=== PATIENT | male | born 1955 | race Hispanic/Latino ===

== ENCOUNTER 2017-06-12 10:30 | Observation (INO) | payer BC ==
[2017-06-12] MEDS ORDERED: CEFTRIAXONE/SWI 1gm 1 GM/10 ML SYR ONE (12:49)
[2017-06-12] MEDS ORDERED: VANCOMYCIN/NS 1 gm 1 GM/250 ML BAG ONE (12:49)
[2017-06-12] MEDS ORDERED: MORPHINE 10 MG/ML VIAL ONE ×2 (12:49→17:35)
[2017-06-12] MEDS ORDERED: ONDANSETRON 4 MG/2 ML VIAL ONE (12:49)
[2017-06-12] MEDS ORDERED: NA CHLORIDE 0.9% 2,000 ML ONE (12:49)
--- NOTE | 2017-06-12 13:27 | RAD REPORT ---
EXAM DESCRIPTION: CT - Head Brain Wo Cont - 06/12/2017 1:19 pm CLINICAL HISTORY: Transient alteration of awareness COMPARISON: None. TECHNIQUE: Axial 5 mm thick images of the head were obtained without IV contrast. All CT scans are performed using dose optimization technique as appropriate and may include automated exposure control or mA/KV adjustment according to patient size. FINDINGS: No intracranial hemorrhage, mass, edema or shift of mid-line structures. No acute infarcti on changes seen. No abnormal extra-axial fluid collections. Ventricles are normal. Mastoid air cells and visualized portions of the paranasal sinuses are clear. No acute bony findings. IMPRESSION: Negative non-contrast CT head examination.
[2017-06-12 13:33] LABS: Absolute Lymphocytes (CBC) 1.5 K/uL (0.7-4.9); Absolute Monocytes 1.5 K/uL (0.1-1.3); Basophils % 0.5 % (0-1.3); Eosinophils % 5.4 % (0-4.4); Hematocrit 46.6 % (39.6-49.0); MCH 31.2 pg (27.0-35.0); MCV 94.2 fL (80-100); MPV 10.1 fL (7.6-11.3); Monocytes % 20.6 % (3.3-12.3); RBC Red Blood Cell Count 4.94 M/uL (4.33-5.43)
[2017-06-12 13:35] LABS: Urine Blood NEGATIVE (NEG); Urine Glucose NEGATIVE (NEG); Urine Protein NEGATIVE (NEG)
[2017-06-12 13:41] LABS: Protime INR 1.07
[2017-06-12 13:44] LABS: Bicarbonate 29 mEq/L (21-31); Glucose Level 105 mg/dL (65-120); Lipase 21 U/L (22-51); Sodium Level 136 mEq/L (135-145)
--- NOTE | 2017-06-12 13:45 | RAD REPORT ---
EXAM DESCRIPTION: RAD - Chest Single View - 06/12/2017 1:37 pm CLINICAL HISTORY: Chills, fever COMPARISON: None. TECHNIQUE: AP portable chest image was obtained 1333 hours . FINDINGS: Right lung field is clear. There is elevation of the left hemidiaphragm limiting left lung base assessment. Atelectasis changes are present. No failure or volume overload. Trachea is midline. Heart and vasculature are normal. No measurable pleural effusion and no pneumothorax. No gross bony abnormality seen. No acute aortic findings suspected. IMPRESSION: No acute cardiopulmonary process identifiable. The left base atelectasis and elevated left hemidiaphragm limit posterior left base assessment.
[2017-06-12 13:52] LABS: ALT/SGPT 42 IU/L (10-60); AST/SGOT 25 IU/L (10-42); Albumin 4.2 g/dL (3.2-5.5); Alkaline Phosphatase 54 IU/L (42-121); BUN Blood Urea Nitrogen 14 mg/dL (6-20); Bilirubin Direct 0.1 mg/dL (0-0.2); Bilirubin Total 0.7 mg/dL (0.3-1.2); C-Reactive Protein 9.7 mg/L (<10.0); Creatine Phosphokinase 96 IU/L (22-269); Protein, Total 7.9 g/dL (6.0-8.3)
[2017-06-12 13:53] LABS: CKMB Creatine Kinase MB 2.1 ng/ml (0.3-4.0)
[2017-06-12 15:13] LABS: CSF Glucose 55 mg/dl (40-70)
[2017-06-12 16:42] LABS: Appearance SLT. TURBID (CLEAR); Body Fluid Source CSF; Color of fluid Colorless (COLORLESS); Fluid Total Volume 4 ml
[2017-06-12 16:43] LABS: Body Fluid Source CSF; Body Fluid WBC 80 /mm^3; Color of fluid Colorless (COLORLESS)
[2017-06-12 16:44] LABS: Appearance CLEAR (CLEAR); Body Fluid WBC 104 /mm^3
--- NOTE | 2017-06-12 17:01 | EDPHYS ---
Physician Documentation [facility] Name: Cedrick Espinosa Age: 62 yrs Sex: Male : 1955 Arrival Date: 06/12/2017 Time: 10:35 Bed 20 Private MD: ED Physician Antonio Nichols HPI: 06/12 18:57 This 62 yrs old Male presents to ER via Ambulatory with complaints of Headache.kdr 18:57 The patient complains of pain to the left side of the back of head, left occipital kdr area, left base of the skull, right side of the back of head, right occipital area and right base of the skull. The patient describes the headache as aching, constant, unrelenting. Onset: The symptoms/episode began/occurred gradually, 1 week(s) ago, and became worse 3 day(s) ago. Associated signs and symptoms: Pertinent positives: fever, malaise, neck stiffness, weakness, Pertinent negatives: altered mental status, dizziness, paresthesias, Photophobia rash, sinus congestion, sinus tenderness, vision changes, vision loss, vomiting, vertigo. Severity of symptoms: At its worst the pain was moderate, severe, just prior to arrival, in the emergency department the pain is unchanged. Headache History: Denies prior headaches. The symptoms are alleviated by nothing. the symptoms are aggravated by movement. The patient has not experienced similar symptoms in the past. The patient has been recently seen by a physician: Was seen on Tuesday for the same problem and given pain medication but he had only taken one pill without relief. Historical: - Allergies: 10:55 No Known Allergies; hj - Home Meds: 10:55 None [Active]; hj - PMHx: 10:55 None; - PSHx: 10:55 R femur; puncture lung; splenectomy; abdominal surgeery; hj - Immunization history:: Adult Immunizations up to date. - Social history:: Smoking status: Patient/guardian denies using tobacco. ROS: 18:57 Constitutional: Negative for objective fever and weight loss - he has had subjective kdr fever and chills Eyes: Negative for injury, pain, redness, and discharge, ENT: Negative for injury, pain, and discharge, Cardiovascular: Negative for chest pain, palpitations, and edema, Respiratory: Negative for shortness of breath, cough, wheezing, and pleuritic chest pain, Abdomen/GI: Negative for abdominal pain, nausea, vomiting, diarrhea, and constipation, Back: Negative for injury and pain, : Negative for injury, bleeding, discharge, and swelling, MS/Extremity: Negative for injury and deformity - he does have pain in his joints and espicially the knees Skin: Negative for injury, rash, and discoloration, Neuro: Negative for headache, weakness, numbness, tingling, and seizure activity. Psych: Negative for depression, anxiety, suicide ideation, homicidal ideation, and hallucinations, Allergy/Immunology: Negative for hives, rash, and allergies, Endocrine: Negative for neck swelling, polydipsia, polyuria, polyphagia, and marked weight changes, Hematologic/Lymphatic: Negative for swollen nodes, abnormal bleeding, and unusual bruising. Exam: 18:57 Constitutional: This is a well developed, well nourished patient who is awake, alert, kdr and in no acute distress. Head/Face: Normocephalic, atraumatic. Eyes: Pupils equal round and reactive to light, extra-ocular motions intact. Lids and lashes normal. Conjunctiva and sclera are non-icteric and not injected. Cornea within normal limits. Periorbital areas with no swelling, redness, or edema. ENT: Nares patent. No nasal discharge, no septal abnormalities noted. Tympanic membranes are normal and external auditory canals are clear. Oropharynx with no redness, swelling, or masses, exudates, or evidence of obstruction, uvula midline. Mucous membranes moist. Chest/axilla: Normal chest wall appearance and motion. Nontender with no deformity. No lesions are appreciated. Cardiovascular: Regular rate and rhythm with a normal S1 and S2. No gallops, murmurs, or rubs. Normal PMI, no JVD. No pulse deficits. Respiratory: Lungs have equal breath sounds bilaterally, clear to auscultation and percussion. No rales, rhonchi or wheezes noted. No increased work of breathing, no retractions or nasal flaring. Abdomen/GI: Soft, non-tender, with normal bowel sounds. No distension or tympany. No guarding or rebound. No evidence of tenderness throughout. Back: No spinal tenderness. No costovertebral tenderness. Full range of motion. Skin: Warm, dry with normal turgor. Normal color with no rashes, no lesions, and no evidence of cellulitis. MS/ Extremity: Pulses equal, no cyanosis. Neurovascular intact. Full, normal range of motion. Neuro: Awake and alert, GCS 15, oriented to person, place, time, and situation. Cranial nerves II-XII grossly intact. Motor strength 5/5 in all extremities. Sensory grossly intact. Cerebellar exam normal. Normal gait. Psych: Awake, alert, with orientation to person, place and time. Behavior, mood, and affect are within normal limits. 18:57 Neck: External neck: is normal, C-spine: Thyroid: ROM/movement: pain, that is mild, limited range of motion, that is mild, in any direction, Meningeal signs: Kernig's sign is negative, Brudzinski's sign is negative, nuchal rigidity, is present, that is mild. Vital Signs: 10:56 BP 123 / 84; Pulse 56; Resp 18; Temp 98.0(O); Pulse Ox 98% on R/A; Weight 80.29 kg; Height 5 ft. 10 in. (177.80 cm); Pain 8/10; 12:40 BP 122 / 70; Pulse 53; Resp 18; Pulse Ox 96% on R/A; em 13:30 BP 121 / 82; Pulse 52; Resp 18; Pulse Ox 97% on R/A; em 15:00 Temp 98.9; em 15:25 BP 119 / 74; Pulse 56; Resp 19; Pulse Ox 95% on R/A; Pain 3/10; em 16:16 BP 126 / 81; Pulse 66; Pulse Ox 96% on R/A; Pain 3/10; em 17:00 BP 127 / 81; Pulse 57; Resp 18; Pulse Ox 96% on R/A; Pain 6/10; em 18:07 BP 133 / 79; Pulse 71; Resp 16; Temp 99.6; Pulse Ox 99% on R/A; Pain 3/10; em 10:56 Body Mass Index 25.40 (80.29 kg, 177.80 cm) Procedures: 14:43 Lumbar Puncture: Patient placed in left lateral decubitus position. Prepped with cp Betadine. Draped using sterile technique. clear fluid. Puncture site dressed with band aid, Patient tolerated well. MDM: 17:00 Patient medically screened. kdr 18:57 Data reviewed: vital signs, nurses notes, lab test result(s), radiologic studies. kdr Counseling: I had a detailed discussion with the patient and/or guardian regarding: the historical points, exam findings, and any diagnostic results supporting the discharge/admit diagnosis, lab results, radiology results, the need for further work-up and treatment in the hospital. Physician consultation: Miguel A Carver MD was called at 15:00, was contacted at 15:00, regarding consult, patient's condition, and will see patient in inpatient room, tomorrow. 06/12 12:45 Order name: Basic Metabolic Panel; Complete Time: 15: kdr 06/12 12:45 Order name: Blood Culture Adult (2) kdr 06/12 12:45 Order name: C-Reactive Protein; Complete Time: : kdr 06/12 12:45 Order name: CBC with Diff; Complete Time: 15: kdr 06/12 12:45 Order name: Ckmb; Complete Time: : kdr 06/12 12:45 Order name: CPK; Complete Time: : kdr 06/12 12:45 Order name: Lactate; Complete Time: : kdr 06/12 12:45 Order name: LFT's; Complete Time: : kdr 06/12 12:45 Order name: Lipase; Complete Time: : kdr 06/12 12:45 Order name: Protime (+inr); Complete Time: 15: kdr 06/12 12:45 Order name: Ptt, Activated; Complete Time: 15: kdr 06/12 12:45 Order name: Sed Rate; Complete Time: : kdr 06/12 12:45 Order name: Troponin (emerg Dept Use Only); Complete Time: 15: kdr 06/12 13:06 Order name: Urine Dipstick--Ancillary (enter results); Complete Time: 15:22 ag 06/12 14:56 Order name: CSF Glucose; Complete Time: 15: EDMS 06/12 14:56 Order name: CSF Total Protein; Complete Time: 15: EDMS 06/12 14:56 Order name: CSF SPECIMEN; Complete Time: 16:48 EDMS 06/12 14:56 Order name: Cell Count Profile; Complete Time: 16:48 EDMS 06/12 14:56 Order name: CSF Culture EDMS 06/12 14:56 Order name: CSF Bacterial Antigens (Tube 1 EDMS 06/12 14:58 Order name: Body Fluid Cell Count; Complete Time: 16:48 EDMS 06/12 17:12 Order name: CSF VDRL EDMS 06/12 17:33 Order name: Comprehensive Metabolic Panel EDMS 06/12 17:33 Order name: Comprehensive Metabolic Panel EDMS 06/12 17:33 Order name: Comprehensive Metabolic Panel EDMS 06/12 17:33 Order name: Comprehensive Metabolic Panel EDMS 06/12 17:33 Order name: Magnesium EDMS 06/12 17:33 Order name: Magnesium EDMS 06/12 12:45 Order name: Chest Single View XRAY; Complete Time: 15:22 kdr 06/12 12:45 Order name: Accucheck; Complete Time: 14:47 kdr 06/12 12:45 Order name: Cardiac monitoring; Complete Time: 14:47 kdr 06/12 12:45 Order name: EKG - Nurse/Tech; Complete Time: 14:47 kdr 06/12 12:45 Order name: IV Saline Lock - Large Bore; Complete Time: 14:48 kdr 06/12 12:45 Order name: Labs collected and sent; Complete Time: 14:48 kdr 06/12 12:45 Order name: O2 Per Protocol; Complete Time: 14:48 kdr 06/12 12:45 Order name: O2 Sat Monitoring; Complete Time: 14:48 kdr 06/12 12:45 Order name: Urine Dipstick-Ancillary (obtain specimen); Complete Time: 12:46 kdr 06/12 12:59 Order name: CT Head Brain wo Cont; Complete Time: 15:22 kdr 06/12 13:04 Order name: Lumbar Puncture Consent; Complete Time: 14:47 cp 06/12 17:34 Order name: CONS Physician Consult OR 06/12 17:34 Order name: Heart Healthy EDMS 06/12 17:34 Order name: Urinalysis EDMS 06/12 17:34 Order name: CBC with Automated Diff EDMS 06/12 17:34 Order name: CBC with Automated Diff EDMS 06/12 17:34 Order name: CBC with Automated Diff EDMS 06/12 17:34 Order name: CBC with Automated Diff EDMS 06/12 17:34 Order name: Magnesium EDMS 06/12 17:34 Order name: Magnesium EDMS 06/12 17:34 Order name: Phosphorus EDMS 06/12 17:34 Order name: Phosphorus EDMS 06/12 17:34 Order name: Phosphorus EDMS 06/12 17:34 Order name: Phosphorus EDMS 06/12 13:04 Order name: Lumbar Puncture Setup; Complete Time: 14:47 cp Administered Medications: 13:12 Drug: Zofran 4 mg Route: IVP; Site: right antecubital; ss 13:54 Follow up: Response: No adverse reaction em 13:15 Drug: morphine 4 mg Route: IVP; Site: right antecubital; ss 13:54 Follow up: Response: No adverse reaction em 13:50 Drug: Rocephin - (cefTRIAXone) 1 grams Route: IVPB; Infused Over: 30 mins; Site: right ss antecubital; 17:47 Follow up: Response: No adverse reaction; IV Status: Completed infusion em 13:54 Drug: vancoMYCIN 1 grams Route: IVPB; Infused Over: 2 hrs; Site: right antecubital; em 17:46 Follow up: IV Status: Completed infusion; IV Intake: 250ml em 13:55 Drug: NS 0.9% (30 ml/kg) 30 ml/kg Route: IV; Rate: bolus; Site: right antecubital; em 18:11 Follow up: IV Status: Completed infusion; IV Intake: 2400ml em 17:43 Drug: morphine 4 mg Route: IVP; Site: right antecubital; em 18:01 Follow up: Response: No adverse reaction em 17:43 Drug: Zofran 4 mg Route: IVP; Site: right antecubital; em 18:11 Follow up: Response: No adverse reaction em 17:52 Drug: Acyclovir (20mg/kg) 20 mg/kg Route: IVPB; Site: right antecubital; em 18:15 Follow up: IV Status: Infusion continued upon admission; IV Intake: 20ml em Point of Care Testing: Blood Glucose: 13:10 Blood Glucose: 99 mg/dL; em Ranges: Critical Glucose Levels:Adult <50 mg/dl or >400 mg/dl <40 mg/dl or >180 mg/dl Disposition: 16:58 I agree with the assessment and plan of care. kdr Disposition: 06/12/17 17:32 Hospitalization ordered by Lilliana He for Inpatient Admission. 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 - Bed requested for Telemetry/MedSurg (Inpatient). - Status is Inpatient Admission. em - Condition is Fair. - Problem is new. - Symptoms have improved. UTI on Admission? No Signatures: Dispatcher [employer] EDMS Shakira Yi, RN RN Antonio Contreras MD MD kdr Narciso, Jeff, FOUNDRY HAND FOUNDRY HAND em Xochilt Sibley RN RN ss Garry Onofre RN RN hj Page, Corey, PA PA cp Corrections: (The following items were deleted from the chart) 14:03 12:46 BNP+C.LAB.BRZ ordered. EDMS EDMS 14:04 12:46 Procalcitonin+C.LAB.BRZ ordered. EDMS EDMS
--- NOTE | 2017-06-12 17:01 | ER ---
Nurse's Notes [facility] Name: Cedrick Espinosa Age: 62 yrs Sex: Male : 1955 Arrival Date: 06/12/2017 Time: 10:35 Bed 20 Private MD: Diagnosis: Other specified viral encephalitis;arthralgia, myalgia Presentation: 06/12 10:52 Presenting complaint: Patient states: a week ago, i started having headache, went to [facility] in [place] and i started getting worse; i was told i have a virus; now i can barely walk and i hurt all over; denies fever, reports chills and night sweats;. Transition of care: patient was not received from another setting of care. Onset of symptoms was June 12, 2017. Care prior to arrival: None. 10:52 Method Of Arrival: Ambulatory 10:52 Acuity: NEETU 3 hj Triage Assessment: 10:55 Headache History: Denies prior headaches. General: Appears in no apparent distress. hj uncomfortable, Behavior is calm, cooperative, appropriate for age. Pain: Pain currently is 8 out of 10 on a pain scale. Pain began a week ago Also complains of. Historical: - Allergies: 10:55 No Known Allergies; hj - Home Meds: 10:55 None [Active]; hj - PMHx: 10:55 None; hj - PSHx: 10:55 R femur; puncture lung; splenectomy; abdominal surgeery; hj - Immunization history:: Adult Immunizations up to date. - Social history:: Smoking status: Patient/guardian denies using tobacco. Screenin:30 Abuse screen: Denies threats or abuse. Nutritional screening: No deficits noted. em Tuberculosis screening: No symptoms or risk factors identified. Fall Risk None identified. Assessment: 12:37 General: Appears in no apparent distress. uncomfortable, Behavior is calm, cooperative. em General: Reports was at [place] [facility] on Tuesday for neck pain, has got worse with weakness, denies numbness and tingling. Pain: Complains of pain in neck Pain radiates to back Pain currently is 10 out of 10 on a pain scale. Pain began 1 week ago. Neuro: Level of Consciousness is awake, alert, obeys commands, Oriented to person, place, time, situation, Caustic Room Operator are equal bilaterally Weakness in neck. Speech is normal, Facial symmetry appears normal, Intact. Cardiovascular: Capillary refill < 3 seconds Patient's skin is warm and dry. Respiratory: Airway is patent Respiratory effort is even, unlabored, Respiratory pattern is regular, symmetrical. GI: Abdomen is flat, Reports nausea, Patient currently denies vomiting. : Urine is clear. EENT: No signs and/or symptoms were reported regarding the EENT system. Derm: Skin is intact, Skin is pink, warm \T\ dry. Musculoskeletal: Range of motion: intact in all extremities. 12:50 General: The previous assessment is accurate, call light remains within reach. . ss 14:15 Reassessment: Patient and/or family updated on plan of care and expected duration. Pain em level reassessed. Patient is alert, oriented x 3, equal unlabored respirations, skin warm/dry/pink. pt consented for LP. 15:22 Reassessment: Patient appears in no apparent distress at this time. Patient and/or em family updated on plan of care and expected duration. Pain level reassessed. Patient is alert, oriented x 3, equal unlabored respirations, skin warm/dry/pink. Patient states feeling better. 16:16 Reassessment: Patient appears in no apparent distress at this time. Patient and/or em family updated on plan of care and expected duration. Pain level reassessed. Patient is alert, oriented x 3, equal unlabored respirations, skin warm/dry/pink. Patient states feeling better. 17:05 Reassessment: Patient appears in no apparent distress at this time. Patient and/or em family updated on plan of care and expected duration. Pain level reassessed. Patient is alert, oriented x 3, equal unlabored respirations, skin warm/dry/pink. 17:44 Reassessment: Patient appears in no apparent distress at this time. Patient and/or em family updated on plan of care and expected duration. Pain level reassessed. Patient is alert, oriented x 3, equal unlabored respirations, skin warm/dry/pink. c/o of pain 08/07, Dr. Nichols notified, new orders received. Vital Signs: 10:56 BP 123 / 84; Pulse 56; Resp 18; Temp 98.0(O); Pulse Ox 98% on R/A; Weight 80.29 kg; hj Height 5 ft. 10 in. (177.80 cm); Pain 8/10; 12:40 BP 122 / 70; Pulse 53; Resp 18; Pulse Ox 96% on R/A; em 13:30 BP 121 / 82; Pulse 52; Resp 18; Pulse Ox 97% on R/A; em 15:00 Temp 98.9; em 15:25 BP 119 / 74; Pulse 56; Resp 19; Pulse Ox 95% on R/A; Pain 3/10; em 16:16 BP 126 / 81; Pulse 66; Pulse Ox 96% on R/A; Pain 3/10; em 17:00 BP 127 / 81; Pulse 57; Resp 18; Pulse Ox 96% on R/A; Pain 6/10; em 18:07 BP 133 / 79; Pulse 71; Resp 16; Temp 99.6; Pulse Ox 99% on R/A; Pain 3/10; em 10:56 Body Mass Index 25.40 (80.29 kg, 177.80 cm) hj ED Course: 10:35 Patient arrived in ED. tw3 10:54 Triage completed. hj 10:55 Arm band placed on right wrist. hj 12:22 Antonio Nichols MD is Attending Physician. kdr 12:22 Jeff Stuart LVN is Primary Nurse. em 13:10 Inserted saline lock: 20 gauge in right antecubital area, using aseptic technique. em Blood collected. 13:10 Initial lab(s) drawn, by me, sent to lab. First set of blood cultures drawn by me, em Urine collected: clean catch specimen, clear. 13:15 CT completed. Patient moved to CT via stretcher. Patient moved back from CT. sw 13:19 CT Head Brain wo Cont In Process Unspecified. EDMS 13:30 Patient has correct armband on for positive identification. Placed in gown. Bed in low em position. Call light in reach. Side rails up X 1. Adult w/ patient. 13:36 X-ray completed. Portable x-ray completed in exam room. jr1 13:37 Chest Single View XRAY In Process Unspecified. EDMS 14:48 Assist provider with lumbar puncture: Set up LP tray. Performed by Wilfred ISAAC CSF is em clear. Puncture site dressed with band aid, Procedure was successful. Patient tolerated well. 17:31 Lilliana He MD is Hospitalizing Provider. kdr 18:14 Patient admitted, IV remains in place. em Administered Medications: 13:12 Drug: Zofran 4 mg Route: IVP; Site: right antecubital; ss 13:54 Follow up: Response: No adverse reaction em 13:15 Drug: morphine 4 mg Route: IVP; Site: right antecubital; ss 13:54 Follow up: Response: No adverse reaction em 13:50 Drug: Rocephin - (cefTRIAXone) 1 grams Route: IVPB; Infused Over: 30 mins; Site: right ss antecubital; 17:47 Follow up: Response: No adverse reaction; IV Status: Completed infusion em 13:54 Drug: vancoMYCIN 1 grams Route: IVPB; Infused Over: 2 hrs; Site: right antecubital; em 17:46 Follow up: IV Status: Completed infusion; IV Intake: 250ml em 13:55 Drug: NS 0.9% (30 ml/kg) 30 ml/kg Route: IV; Rate: bolus; Site: right antecubital; em 18:11 Follow up: IV Status: Completed infusion; IV Intake: 2400ml em 17:43 Drug: morphine 4 mg Route: IVP; Site: right antecubital; em 18:01 Follow up: Response: No adverse reaction em 17:43 Drug: Zofran 4 mg Route: IVP; Site: right antecubital; em 18:11 Follow up: Response: No adverse reaction em 17:52 Drug: Acyclovir (20mg/kg) 20 mg/kg Route: IVPB; Site: right antecubital; em 18:15 Follow up: IV Status: Infusion continued upon admission; IV Intake: 20ml em Point of Care Testing: Blood Glucose: 13:10 Blood Glucose: 99 mg/dL; em Ranges: Intake: 17:46 IV: 250ml; Total: 250ml. em 18:11 IV: 2400ml; Total: 2650ml. em 18:15 IV: 20ml; Total: 2670ml. em Outcome: 17:00 Discharge ordered by . kdr 17:32 Decision to Hospitalize by Provider. kdr 18:14 Admitted to Med/surg accompanied by nissa, via wheelchair, room 222, with chart, Report em called to HAN Nelson 18:14 Condition: good 18:14 Instructed on the need for admit, Demonstrated understanding of instructions. 18:16 Patient left the ED. em Signatures: Dispatcher [employer] Antonio Maria MD MD kdr Ringgold, Jennifer jr1 Jeff Stuart, FOOD VENDOR FOOD VENDOR em Xochilt Sibley RN RN ss Warren, Shannon sw Joaquin, Henry, RN RN hj Wade, Kinana tw3 Corrections: (The following items were deleted from the chart) 10:58 10:56 Pulse 56bpm; Resp 18bpm; Pulse Ox 98% RA; Temp 98.0F Oral; 80.29 kg; Height 5 ft. hj 10 in.; BMI: 25.4; Pain 8/10; hj
[2017-06-12] MEDS ORDERED: ONDANSETRON 4 MG/2 ML VIAL IV PRN (17:30)
[2017-06-12] MEDS ORDERED: ACYCLOVIR INJ 800 MG in NA CHLORIDE 0.9% 100 ML IVPB SCH (18:00)
[2017-06-12] MEDS ORDERED: VANCOMYCIN 1.25 GM in NA CHLORIDE 0.9% 250 ML IVPB SCH (18:00)
--- NOTE | 2017-06-12 18:05 | P.HP ---
Certification for Inpatient Patient admitted to: Observation With expected LOS: <2 Midnights Patient will require the following post-hospital care: None Practitioner: I am a practitioner with admitting privileges, knowledge of patient current condition, hospital course, and medical plan of care. Services: Services provided to patient in accordance with Admission requirements found in Title 42 Section 412.3 of the Code of Federal Regulations Patient History Date of Service: 06/13/17 Primary Care Provider: OOT Reason for admission: generalized weakness History of Present Illness: A 62 Y/O Male with No pmhx who presented to the ED with c/o NELSON for 1 week and has been getting progressively worse. He states he went to the ED in [place] and was told he has viral illness and was DC home under stable condition. Pt states he however continued to have the HD and then got low grade fever at home. Pt states he also had some chills with the fever. Did not take any medication for it. In the ER pt was found to be elevated protein and Lymphocytes in the CSF study and thus was referred to medicine for further admission for viral meningitis. Allergies No Known Allergies Allergy (Unverified 06/12/17 17:08) Home medications list reviewed: No Home Medications: NK [No Home Meds] 06/12/17 - Past Medical/Surgical History Has patient received pneumonia vaccine in the past: No Diabetic: No Review of Systems General: As per HPI Physical Examination - Physical Exam General: Alert, In no apparent distress HEENT: Atraumatic, Other (Nucal Rigidity. No Photophobia) Neck: Supple Respiratory: Clear to auscultation bilaterally, Normal air movement Cardiovascular: Regular rate/rhythm, Normal S1 S2 Gastrointestinal: Normal bowel sounds, No tenderness Musculoskeletal: No tenderness Integumentary: No rashes Neurological: Normal speech, Normal strength at 5/5 x4 extr, Normal tone, Normal affect Lymphatics: No axilla or inguinal lymphadenopathy - Studies Laboratory Data (last 24 hrs) 06/12/17 13:10: PT 12.6 H, INR 1.07, APTT 26.2 06/12/17 13:10: WBC 7.5, Hgb 15.4, Hct 46.6, Plt Count 225 06/12/17 13:10: B-Natriuretic Peptide Cancelled 06/12/17 13:10: Sodium 136, Potassium 4.0, BUN 14, Creatinine 0.80, Glucose 105 , Total Bilirubin 0.7, AST 25, ALT 42, Alkaline Phosphatase 54, Lipase 21 L Microbiology Data (last 24 hrs): 06/12/17 14:40 Cerebral Spinal Fluid CSF Bacterial Antigens (Tube 1) BROCK - Final Assessment and Plan - Problems (Diagnosis) (1) Meningitis Onset Date: 06/13/17 Current Visit: Yes Status: Acute Plan: Most Likely viral but cannot r/o Bacterial -CSF analysis with elevated lymphocytes and High protein. -Culture pending at this time -On IV Vanc, Rocephin and acyclovir -Dr Carver consulted. Awaiting reccs. (2) General weakness Onset Date: 06/13/17 Current Visit: Yes Status: Acute Plan: Most Likely viral illness. -PT/OT consulted. Discharge Plan: Home Plan to discharge in: 24 Hours - Advance Directives Does patient have a Living Will: No Does patient have a Durable POA for Healthcare: No - Code Status/Comfort Care Code Status Assessed: Yes Critical Care: No
[2017-06-12] MEDS: NA CHLORIDE 0.9% 1,000 ML IV SCH (19:49)
[2017-06-12] MEDS: CEFTRIAXONE/SWI 2gm 2 GM/20 ML SYR IV SCH (21:34)
[2017-06-12] MEDS: ACETAMINOPHEN 500 MG TAB PO PRN (21:35)
[2017-06-13] MEDS: ACYCLOVIR INJ 400 MG in NA CHLORIDE 0.9% 100 ML IVPB SCH ×3 (00:11→16:28)
[2017-06-13] MEDS ORDERED: VANCOMYCIN 1.5 GM in NA CHLORIDE 0.9% 500 ML IVPB SCH (01:00)
[2017-06-13] MEDS: ACETAMINOPHEN 500 MG TAB PO PRN ×3 (01:29→20:09)
[2017-06-13] MEDS: NA CHLORIDE 0.9% 1,000 ML IV SCH ×2 (03:35→14:49)
[2017-06-13 05:18] LABS: Absolute Monocytes 1.7 K/uL (0.1-1.3); Absolute Neutrophil 4.2 K/uL (1.8-8.0); Basophils % 0.9 % (0-1.3); Eosinophils % 6.6 % (0-4.4); Hematocrit 38.7 % (39.6-49.0); Lymphocytes % 23.8 % (15.3-44.8); MCH 32.3 pg (27.0-35.0); MCV 93.2 fL (80-100); MPV 9.8 fL (7.6-11.3); Monocytes % 19.7 % (3.3-12.3); RBC Red Blood Cell Count 4.15 M/uL (4.33-5.43)
[2017-06-13 05:36] LABS: ALT/SGPT 32 IU/L (10-60); AST/SGOT 22 IU/L (10-42); Alkaline Phosphatase 42 IU/L (42-121); BUN Blood Urea Nitrogen 15 mg/dL (6-20); Bicarbonate 27 mEq/L (21-31); Bilirubin Total 0.6 mg/dL (0.3-1.2); Glucose Level 110 mg/dL (65-120); Magnesium 2.1 mg/dL (1.8-2.5); Phosphorus 3.1 mg/dL (2.5-4.3); Potassium 4.4 mEq/L (3.6-5.0); Protein, Total 5.6 g/dL (6.0-8.3); Sodium Level 137 mEq/L (135-145)
[2017-06-13 06:56] LABS: Blood Morphology Comment NOT SEEN (NOT SEEN); Platelet Estimate ADEQ
--- NOTE | 2017-06-13 07:38 | EKG ---
Test Date: 2017-06-12 Test Time: 13:44:32 Cell Repairer: MEASUREMENT RESULTS: Intervals: Rate: 51 CT: 184 QRSD: 98 QT: 402 QTc: 370 [place]ill: P: 70 CT: 184 QRS: 79 T: 74 INTERPRETIVE STATEMENTS: Sinus bradycardia Minimal voltage criteria for LVH, may be normal variant Borderline ECG Compared to ECG 03/17/2000 12:30:00 No significant changes Electronically Signed On 06-13-17 07:37:35 CDT by Coleman Wilson
[2017-06-13] MEDS: CEFTRIAXONE/SWI 2gm 2 GM/20 ML SYR IV SCH (08:49)
[2017-06-13] MEDS ORDERED: CEFTRIAXONE/SWI 1gm 1 GM/10 ML SYR IV SCH (09:00)
--- NOTE | 2017-06-13 11:11 | P.PN ---
Subjective Date of Service: 06/13/17 Primary Care Provider: YOLA Chief Complaint: generalized weakness Patient seen and examined at bedside with RN. Chart reviewed. Case discussed with ID. Currently patient is feeling much better than before. Complains of a headache at this time however states that it is much better than when he came in with. Review of Systems 10-point ROS is otherwise unremarkable Physical Examination - Vital Signs Temperature: 97.6 F Blood Pressure: 100/55 Pulse: 55 Respirations: 20 Pulse Ox (%): 97 - Physical Exam General: Alert, In no apparent distress HEENT: Atraumatic, PERRLA, EOMI Neck: Supple, JVD not distended Respiratory: Clear to auscultation bilaterally, Normal air movement Cardiovascular: Regular rate/rhythm, Normal S1 S2 Gastrointestinal: Normal bowel sounds, No tenderness Musculoskeletal: No tenderness Integumentary: No rashes Neurological: Normal speech, Normal tone, Normal affect Lymphatics: No axilla or inguinal lymphadenopathy - Studies Laboratory Data (last 24 hrs) 06/12/17 13:10: PT 12.6 H, INR 1.07, APTT 26.2 06/12/17 13:10: WBC 7.5, Hgb 15.4, Hct 46.6, Plt Count 225 06/12/17 13:10: B-Natriuretic Peptide Cancelled 06/12/17 13:10: Sodium 136, Potassium 4.0, BUN 14, Creatinine 0.80, Glucose 105 , Total Bilirubin 0.7, AST 25, ALT 42, Alkaline Phosphatase 54, Lipase 21 L Microbiology Data (last 24 hrs): 06/12/17 14:40 Cerebral Spinal Fluid CSF Bacterial Antigens (Tube 1) BROCK - Final 06/12/17 14:42 Cerebral Spinal Fluid Miscellaneous Micro Reference Test - Final Medications List Reviewed: Yes Assessment & Plan - Problems (Diagnosis) (1) Meningitis Onset Date: 06/13/17 Current Visit: Yes Status: Acute Plan: Most Likely viral but -CSF analysis with elevated lymphocytes and High protein. -Culture CSF negative for Bacterial Meningtis -DC vanc and rocephin and continue acyclovir -Dr Carver consulted. Awaiting reccs. (2) General weakness Onset Date: 06/13/17 Current Visit: Yes Status: Acute Plan: Most Likely viral illness. -Resolved now. -Ambulating Discharge Plan: Home Plan to discharge in: 24 Hours - Code Status/Comfort Care Code Status Assessed: Yes Critical Care: No
[2017-06-13] MEDS ORDERED: TRAMADOL HCL 50 MG TAB PO ONE (12:00)
[2017-06-13 18:49] LABS: Urine Appearance CLEAR; Urine Bilirubin NEGATIVE (NEG); Urine Blood NEGATIVE (NEG); Urine Color YELLOW; Urine Glucose NEGATIVE (NEG); Urine Microscopic Reflex NO UMIC; Urine Protein NEGATIVE (NEG); Urine Specific Gravity 1.015 (1.005-1.030); Urine Urobilinogen 0.2 mg/dL (0.2-1.0)
--- NOTE | 2017-06-13 21:49 | CON ---
Reason For Consultation: Consultation called because of the viral meningitis. History Of Present Illness: Mr. Espinosa is a 62-year-old, right-handed, male who came into the hospital yesterday with one week's worth of headache, low-grade fever, mild stiffness. He did not have sharona nausea or vomiting or focal or focal neurological deficits. At [facility], his head CT scan was negative for any acute ischemic or hemorrhagic change. Given these clinical symptoms, he had a lumbar puncture, which shows slight turbidity. The first tube showed 780 red blood cells and fourth 232. White blood cells were elevated to 104 with 84% lymphocytes. He had slightly elevated total protein at 81 with normal glucose of 55. White blood cell count was normal at 8.6. Differential was normal. Hemoglobin and hematocrit unremarkable. Coagulation panel was normal. His basic metabolic panel and liver function studies were all unremarkable. Urinalysis was normal. Given the presentation, the patient was treated for possible bacterial and viral meningitis. He received Rocephin and vancomycin along with acyclovir. Since his hospitalization, his symptoms have resolved mildly in terms of headache to the headache of around 2 to 3/10. He has remained afebrile. All other antigen screens for bacterial meningitis turned out negative. He denies any current nuchal rigidity, stiffness of the neck, or pain that radiates down to the arms with flexion of the neck or radiates towards the chest. Past Medical History: Not significant. Past Surgical History: Right femur surgery. He has actually lung puncture, splenectomy and surgery in the abdomen. Social History: He denies alcohol, tobacco, or IV drug use. Allergies: NO KNOWN DRUG ALLERGIES. Medications At Home: None. Review of Systems: Aside from indicated above, no recent myalgias, arthralgias. No psychiatric complaints. No gastrointestinal issues. No genitourinary issues. No psychiatric issues. Physical Examination: Vital Signs: Blood pressure 113/62, pulse 59, respiratory rate 18, temperature 98.2, oxygen saturation 97% on room air. Weight 177 pounds. Height 5 feet 10 inches. General: Mr. Espinosa is resting in bed. He is alert and oriented to person, place, time and situation. HEENT: He is normocephalic, atraumatic. His sclerae are anicteric. Oropharynx is moist and pink. Neck: Supple. Chest: Clear. Heart: Regular. Extremities: Show no edema, cyanosis, or clubbing. Neurologic: He is alert and oriented to situation, place, and person. Follows all commands appropriately. There are no expressive or receptive aphasias. Cranial nerves 2 through 12 are intact by examination. Motor examination; he has full strength in the upper and lower extremities proximally and distally. Sensory exam is intact to light touch and temperature in the arms and legs. Reflexes 1 to 2+ in upper and lower extremities and symmetric. Coordination intact in upper and lower extremities. Gait normal stance, stride, and arm swing. Assessment: Mr. Espinosa is a 62-year-old patient with viral meningitis which actually is resolving. Of note, he has no focal neurological deficits. Plan: 1. May start Topamax 25 mg at night, perhaps for a month, and if the patient has no further headaches, may taper off that medication. 2. May use Tylenol or tramadol as needed for abortive headache treatment. 3. He may be discharged home with Zofran as needed and may have the acyclovir stocks and may follow up with Dr. Carver in the clinic 1 month later. It is highly unlikely the patient has any evidence of herpes encephalitis. He does have an EEG that is pending that study will be evaluated and will be followed up with the patient in clinic on an outpatient basis. NIRAV Voice ID: [id number] Report ID: [id number] LESA
[2017-06-13] MEDS: TRAMADOL HCL 50 MG TAB PO PRN (22:53)
[2017-06-14] MEDS: ACYCLOVIR INJ 400 MG in NA CHLORIDE 0.9% 100 ML IVPB SCH ×2 (01:30→09:03)
[2017-06-14 05:26] LABS: Absolute Lymphocytes (CBC) 1.8 K/uL (0.7-4.9); Absolute Monocytes 1.2 K/uL (0.1-1.3); Absolute Neutrophil 7.9 K/uL (1.8-8.0); Basophils % 0.7 % (0-1.3); Eosinophils % 2.7 % (0-4.4); Hematocrit 42.7 % (39.6-49.0); MCH 31.9 pg (27.0-35.0); MCV 94.2 fL (80-100); MPV 9.7 fL (7.6-11.3); Monocytes % 10.4 % (3.3-12.3); RBC Red Blood Cell Count 4.53 M/uL (4.33-5.43)
[2017-06-14 05:53] LABS: Albumin 3.5 g/dL (3.2-5.5); Bilirubin Total 0.4 mg/dL (0.3-1.2); Magnesium 2.1 mg/dL (1.8-2.5); Phosphorus 2.7 mg/dL (2.5-4.3); Potassium 4.8 mEq/L (3.6-5.0); Protein, Total 6.6 g/dL (6.0-8.3)
[2017-06-14] MEDS: TRAMADOL HCL 50 MG TAB PO PRN (07:00)
[2017-06-14] MEDS: NA CHLORIDE 0.9% 1,000 ML IV SCH ×2 (09:03)
[2017-06-14] MEDS ORDERED: TOPIRAMATE 25 MG TAB PO SCH ×2 (11:31→11:54)
--- NOTE | 2017-06-14 12:01 | EEG ---
CHART: [id number] TEST ID#: [id number] DATE OF STUDY: 06/13/2017 THE EEG WAS RECORDED PORTABLE IN THE PATIENT'S ROOM ON A 17 CHANNEL MACHINE. ELECTRODES WERE APPLIED IN THE USUAL MANNER USING THE INTERNATIONAL 10-20 SYSTEM. THE WAKING BACKGROUND RHYTHM IN THIS RECORD CONSISTS OF WELL DEVELOPED AND WELL ORGANIZED WAVES OF 9.5 HZ., MAXIMAL IN THE POSTERIOR HEAD REGIONS WHICH ATTENUATE NORMALLY WITH EYE OPENING. LOW-VOLTAGE 18-22 HZ ACTIVITY IS EXPRESSED IN THE FRONTAL REGIONS. THERE ARE NO FOCAL OR LATERALIZING FEATURES. NO EPILEPTIFORM ACTIVITY APPEARS. SLEEP OCCURRED NATURALLY. IN ADDITION NORMAL SLEEP PATTERNS ARE PRESENT. HYPERVENTILATION WAS NOT PERFORMED. PHOTIC STIMULATION PRODUCED FAIR DRIVING BILATERALLY. IMPRESSION: NORMAL EEG FOR THE AGE OF THE PATIENT IN [place], DROWSINESS AND SLEEP.
--- NOTE | 2017-06-14 16:26 | P.DS ---
Admission Date: 06/12/17 Discharge Date: 06/14/17 Primary Care Provider: OVLAD Disposition: ROUTINE DISCHARGE Discharge Condition: GOOD Reason for Admission: generalized weakness Consultations: Neurology - Dr Portillo Procedures: EEG - Problems (1) Meningitis Onset Date: 06/13/17 Current Visit: Yes Status: Acute (2) General weakness Onset Date: 06/13/17 Current Visit: Yes Status: Acute Brief History of Present Illness: A 62 Y/O Male with No pmhx who presented to the ED with c/o NELSON for 1 week and has been getting progressively worse. He states he went to the ED in [place] and was told he has viral illness and was DC home under stable condition. Pt states he however continued to have the HD and then got low grade fever at home. Pt states he also had some chills with the fever. Did not take any medication for it. In the ER pt was found to be elevated protein and Lymphocytes in the CSF study and thus was referred to medicine for further admission for viral meningitis. Hospital Course: Overall during hospital patient is stable Patient was initially admitted to the hospital for headache and meningeal signs. And lumbar puncture was done in the ER which was consistent with elevated lymphocytes along with protein. Meningitis was suspected and this patient was admitted for meningitis the hospital. CSF fluid was sent for Gram stain culture and VDRL. Which all came back negative. Neurology was consulted who recommended patient get a head CT and EEG done. Head CT was negative an EEG was unremarkable. Patient initially complained of headache which were controlled with Topamax and this patient was discharged home under stable condition with the recommendations from Neurology to f/u in 2 weeks. Vital Signs/Physical Exam: Temp Pulse Resp BP Pulse Ox 99.4 F 69 20 130/80 96 06/14/17 12:00 06/14/17 12:00 06/14/17 12:00 06/14/17 12:00 06/14/17 12:00 General: Alert, In no apparent distress HEENT: Atraumatic, PERRLA, EOMI Neck: Supple, JVD not distended Respiratory: Clear to auscultation bilaterally, Normal air movement Cardiovascular: Regular rate/rhythm, Normal S1 S2 Gastrointestinal: Normal bowel sounds, No tenderness Musculoskeletal: No tenderness Integumentary: No rashes Neurological: Normal speech, Normal tone, Normal affect Lymphatics: No axilla or inguinal lymphadenopathy Laboratory Data at Discharge: WBC 11.2 K/uL (4.3-10.9) H D 06/14/17 05:02 Hgb 14.5 g/dL (13.6-17.9) 06/14/17 05:02 Hct 42.7 % (39.6-49.0) 06/14/17 05:02 Plt Count 250 K/uL (152-406) D 06/14/17 05:02 PT 12.6 SECONDS (9.5-12.5) H 06/12/17 13:10 INR 1.07 06/12/17 13:10 APTT 26.2 SECONDS (24.3-36.9) 06/12/17 13:10 Sodium 132 mEq/L (135-145) L 06/14/17 05:02 Potassium 4.8 mEq/L (3.6-5.0) 06/14/17 05:02 BUN 11 mg/dL (6-20) 06/14/17 05:02 Creatinine 0.87 mg/dL (0.61-1.24) 06/14/17 05:02 Glucose 121 mg/dL (65-120) H 06/14/17 05:02 Phosphorus 2.7 mg/dL (2.5-4.3) 06/14/17 05:02 Magnesium 2.1 mg/dL (1.8-2.5) 06/14/17 05:02 Total Bilirubin 0.4 mg/dL (0.3-1.2) 06/14/17 05:02 AST 28 IU/L (10-42) 06/14/17 05:02 ALT 46 IU/L (10-60) 06/14/17 05:02 Alkaline Phosphatase 50 IU/L (42-121) 06/14/17 05:02 B-Natriuretic Peptide Cancelled 06/12/17 13:10 Lipase 21 U/L (22-51) L 06/12/17 13:10 Home Medications: Topiramate [Topamax*] 25 mg PO DAILY #30 tab 06/14/17 New Medications: Topiramate [Topamax*] 25 mg PO DAILY #30 tab Patient Discharge Instructions: Please f/u with Dr portillo in 1 to 2 weeks post discharge. New medication. Topamax 25mg Daily for NELSON Diet: Regular Activity: Ad urbano Followup: Miguel A Portillo MD [ASSOCIATE-ACTIVE - CAN ADMIT] - 1 Week
== END 2017-06-14 15:04 | disposition home or self-care (01) ==
LOC: ER 10:30 → ERHOLD 17:31 → 2ND 18:06
PROVIDERS: ADMIT Family Medicine; ATTEND Family Medicine
PROC: 009U3ZX Drainage of Spinal Canal, Percutaneous Approach, Diagnostic (ICD-10-PCS; principal; 2017-06-12)
DX: A87.9 Viral meningitis, unspecified (principal)
CPT/HCPCS: 36415; 62270; 70450; 71045; 80048; 80053; 80076; 80202; 81003; 82550; 82553; 82945; 82962; 83605; 83690; 83735; 84100; 84157; 84484; 85025; 85610; 85652; 85730; 86140; 86403; 87040; 87070; 89050; 93005; 95819; 96365; 96367; 96368; 96375; 99285; G0378; J0133; J0696; J2405; J3370; J7030

== ENCOUNTER 2017-08-08 11:13 | Emergency (ER) | payer BC ==
[2017-08-08] MEDS ORDERED: FENTANYL CITR 100 MCG/2 ML ONE (11:38)
[2017-08-08] MEDS ORDERED: PROPOFOL 200 MG/20 ML VIAL IV ONE (11:38)
[2017-08-08] MEDS ORDERED: NA CHLORIDE 0.9% 500 ML ONE (11:39)
[2017-08-08] MEDS ORDERED: LIDOCAINE 1% W/EPI 1:100,000 MDV 50 ML VIAL ONE (11:48)
[2017-08-08] MEDS ORDERED: BUPIVACAINE 0.5% PF 10 ML VIAL ONE (12:11)
--- NOTE | 2017-08-08 12:47 | ER ---
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 Negative LOC. Limited range of motion of right shoulder noted. Care prior to arrival: None. Mechanism of Injury:. 11:18 Method Of Arrival: Ambulatory hb 11:18 Acuity: NEETU 2 hb 11:40 Transition of care: patient was not received from another setting of care. Onset of sv symptoms was August 08, 2017. Risk Assessment: Do you want to hurt yourself or someone else? Patient reports no desire to harm self or others. Initial Sepsis Screen: Does the patient meet any 2 criteria? No. Patient's initial sepsis screen is negative. Does the patient have a suspected source of infection? No. Patient's initial sepsis screen is negative. Historical: - Allergies: 11:21 No Known Allergies; hb - PSHx: 11:21 R femur; puncture lung; splenectomy; abdominal surgeery; hb - Immunization history:: Adult Immunizations up to date. - Social history:: Smoking status: Patient uses tobacco products. - Ebola Screening: : No symptoms or risks identified at this time. Screenin:21 Abuse screen: Denies threats or abuse. Denies injuries from another. Tuberculosis hb screening: No symptoms or risk factors identified. 11:40 Nutritional screening: No deficits noted. Fall Risk None identified. sv Primary Survey: 11:19 A: Airway: patent, No supplemental oxygen in use on arrival. Oral cavity: clear, hb Trachea midline. Breathing/Chest: Respiratory pattern: regular, Respiratory effort: spontaneous, unlabored, Breath sounds: clear, bilaterally. Chest inspection: symmetrical rise and fall of the chest. Circulation: Skin color: pink, Skin temperature: warm, dry. Disability Alert. Assessment: 11:40 General: Appears uncomfortable, slender, well developed, Behavior is calm, cooperative, sv appropriate for age. Pain: Complains of pain in right shoulder Pain currently is 6 out of 10 on a pain scale. Pain began 1 hour ago. Is continuous. Neuro: Level of Consciousness is awake, alert, obeys commands, Oriented to person, place, time, situation, Gait is steady. Cardiovascular: Patient's skin is warm and dry. Pulses are 3+ in right radial artery and left radial artery. Respiratory: Respiratory effort is even, unlabored, Respiratory pattern is regular, symmetrical. Derm: Skin is normal. Musculoskeletal: Range of motion: limited in right shoulder. 13:11 Reassessment: Patient appears in no apparent distress at this time. Patient and/or sv family updated on plan of care and expected duration. Pain level reassessed. Patient is alert, oriented x 3, equal unlabored respirations, skin warm/dry/pink. Patient denies pain at this time. Patient states feeling better. Patient states symptoms have improved. Vital Signs: 11:20 BP 100 / 79; Pulse 54; Resp 16; Temp 98.1; Pulse Ox 98% on R/A; Weight 77.11 kg; Height hb 5 ft. 10 in. (177.80 cm); Pain 6/10; 11:49 BP 118 / 82; Pulse 46; Resp 17; Pulse Ox 96% on R/A; sv 12:00 BP 101 / 72; Pulse 51; Resp 19; Pulse Ox 100% on 15% Non-rebreather mask; sv 12:05 BP 113 / 95; Pulse 54; Resp 23; Pulse Ox 100% on 15% Non-rebreather mask; sv 12:37 BP 117 / 77; Pulse 48; Resp 16; Pulse Ox 100% ; em1 12:45 BP 113 / 89; Pulse 48; Resp 18; Pulse Ox 100% on R/A; sv 11:20 Body Mass Index 24.39 (77.11 kg, 177.80 cm) hb Trauma Score (Adult): 11:20 Eye Response: spontaneous(1); Verbal Response: oriented(1); Motor Response: obeys hb commands(2); Systolic BP: > 89 mm Hg(4); Respiratory Rate: 10 to 29 per min(4); Ev Score: 15; Trauma Score: 12 ED Course: 11:13 Patient arrived in ED. as 11:19 Triage completed. hb 11:23 Antonio Shin MD is Attending Physician. kdr 11:30 Inserted saline lock: 20 gauge in left antecubital area, using aseptic technique. sv 11:30 Patient has correct armband on for positive identification. Placed in gown. Bed in low sv position. 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 Pulse ox on. NIBP on. Head of bed elevated. 11:32 Coco Gomes, RN is Primary Nurse. tw2 11:40 Arm band placed on left wrist. sv 11:40 Consent for conscious sedation explained by staff, explained by physician, signed by sv patient. 11:55 Assist provider with reduction of right shoulder using manipulation, Set up for sv procedure. Performed by Antonio Shin MD Immobilized with shoulder immobilizer Patient tolerated well. 12:10 Assist provider with laceration repair on forehead that was 2.5 cm. or less using sv sutures. Set up tray. Performed by Antonio Shin MD Patient tolerated well. 12:14 Radiology exam delayed due to DR. SHIN IN ER ROOM 4 WHEN ATTEMPTED X RAY. sw 12:36 X-ray completed. Portable x-ray completed in exam room. Patient tolerated procedure jb2 well. 12:40 Shoulder Right (2 View) XRAY In Process Unspecified. EDMS 12:48 Primary Nurse role handed off by Coco Gomes RN sv 12:48 Erin Wolff, HAN is Primary Nurse. sv 13:09 IV discontinued, intact, bleeding controlled, No redness/swelling at site. Pressure sv dressing applied. Administered Medications: 11:58 Drug: Propofol 45 mg {Note: given by Dr Shin.} Route: IVP; Site: left antecubital; sv 12:51 Follow up: Response: No adverse reaction sv 12:03 Drug: Propofol 35 mg {Note: given by Dr Shin.} Route: IVP; Site: left antecubital; sv 12:51 Follow up: Response: No adverse reaction sv 12:05 Drug: Propofol 20 mg {Note: given by Dr Shin.} Route: IVP; Site: left antecubital; sv 12:51 Follow up: Response: No adverse reaction sv 12:10 Drug: Lidocaine-Epinephrine -1%: (1:100,000) 5 ml {Note: given to Dr Shin for sv procedure.} Volume: 20 ml; Route: Infiltration; 12:10 Drug: Marcaine (0.5 %) 5 ml {Note: given to Dr Shin for procedure.} Volume: 10 ml; sv Route: Infiltration; Outcome: 12:47 Discharge ordered by . kdr 13:11 Discharged to home ambulatory, with family. sv 13:11 Condition: stable 13:11 Condition: improved 13:11 Discharge instructions given to patient, family, Instructed on discharge instructions, follow up and referral plans. no drinking with medication, no driving heavy equipment, medication usage, shoulder immobilizer application Demonstrated understanding of instructions, follow-up care, medications, shoulder immobilizer application Prescriptions given X 2. 13:14 Patient left the ED. sv Signatures: Dispatcher [employer] EDMS Erin Wolff, RN RN sv Antonio Shin MD MD kdr Buechter, Jesse jb2 Karon Griffith Eric em1 Arina House Heather RN RN Coco Gomes RN RN tw2 Corrections: (The following items were deleted from the chart) 11:21 11:18 Presenting complaint: Patient states: Fell from 4 foot ladder approx 20 mins [employer]ING, hb c/o right shoulder pain and laceration to forehead. Negative LOC. hb 11:21 11:18 Acuity: NEETU 3 hb hb 12:50 12:03 Propofol 35 mg IVP in left antecubital sv sv
--- NOTE | 2017-08-08 12:47 | EDPHYS ---
Physician Documentation [facility] Name: Cedrick Espinosa Age: 62 yrs Sex: Male : 1955 Arrival Date: 08/08/2017 Time: 11:13 Bed 4 Private MD: ED Physician Antonio Nichols HPI: 08/08 12:27 This 62 yrs old Male presents to ER via Ambulatory with complaints of Fall kdr Injury - R Shoulder Dislocation. 12:27 Onset: The symptoms/episode began/occurred acutely, just prior to arrival. Associated kdr injuries: The patient sustained injury to the head, anterior aspect of right shoulder and posterior aspect of right shoulder, decreased range of motion, deformity, painful injury. Severity of symptoms: At their worst the symptoms were moderate, in the emergency department the symptoms are unchanged. The patient has not experienced similar symptoms in the past. The patient has not recently seen a physician. Historical: - Allergies: 11:21 No Known Allergies; hb - PSHx: 11:21 R femur; puncture lung; splenectomy; abdominal surgeery; hb - Immunization history:: Adult Immunizations up to date. - Social history:: Smoking status: Patient uses tobacco products. - Ebola Screening: : No symptoms or risks identified at this time. ROS: 12:27 Constitutional: Negative for fever, chills, and weight loss, Eyes: Negative for injury, kdr pain, redness, and discharge, Neck: Negative for injury, pain, and swelling, Cardiovascular: Negative for chest pain, palpitations, and edema, Respiratory: Negative for shortness of breath, cough, wheezing, and pleuritic chest pain, Abdomen/GI: Negative for abdominal pain, nausea, vomiting, diarrhea, and constipation, Back: Negative for injury and pain, : Negative for injury, bleeding, discharge, and swelling, Skin: Negative for injury, rash, and discoloration, Neuro: Negative for headache, weakness, numbness, tingling, and seizure activity. Psych: Negative for depression, anxiety, suicide ideation, homicidal ideation, and hallucinations, Allergy/Immunology: Negative for hives, rash, and allergies, Endocrine: Negative for neck swelling, polydipsia, polyuria, polyphagia, and marked weight changes, Hematologic/Lymphatic: Negative for swollen nodes, abnormal bleeding, and unusual bruising. 12:27 MS/extremity: Positive for injury or acute deformity, decreased range of motion, of the anterior aspect of right shoulder and posterior aspect of right shoulder, Negative for paresthesias, puncture. 12:27 Skin: Positive for laceration(s), Negative for abscesses, avulsion, puncture. 12:27 Neuro: Negative for altered mental status, dizziness, gait disturbance, headache, hearing loss, numbness, seizure activity, speech changes, syncope, near syncope, tingling, tinnitus, tremor, visual changes, weakness. Exam: 12:27 Constitutional: This is a well developed, well nourished patient who is awake, alert, kdr and in no acute distress. Head/Face: Normocephalic, atraumatic. Eyes: Pupils equal round and reactive to light, extra-ocular motions intact. Lids and lashes normal. Conjunctiva and sclera are non-icteric and not injected. Cornea within normal limits. Periorbital areas with no swelling, redness, or edema. Neck: Trachea midline, no thyromegaly or masses palpated, and no cervical lymphadenopathy. Supple, full range of motion without nuchal rigidity, or vertebral point tenderness. No Meningismus. Chest/axilla: Normal chest wall appearance and motion. Nontender with no deformity. No lesions are appreciated. Cardiovascular: Regular rate and rhythm with a normal S1 and S2. No gallops, murmurs, or rubs. Normal PMI, no JVD. No pulse deficits. Respiratory: Lungs have equal breath sounds bilaterally, clear to auscultation and percussion. No rales, rhonchi or wheezes noted. No increased work of breathing, no retractions or nasal flaring. Abdomen/GI: Soft, non-tender, with normal bowel sounds. No distension or tympany. No guarding or rebound. No evidence of tenderness throughout. Back: No spinal tenderness. No costovertebral tenderness. Full range of motion. Skin: Warm, dry with normal turgor. Normal color with no rashes, no lesions, and no evidence of cellulitis. Neuro: Awake and alert, GCS 15, oriented to person, place, time, and situation. Cranial nerves II-XII grossly intact. Motor strength 5/5 in all extremities. Sensory grossly intact. Cerebellar exam normal. Normal gait. Psych: Awake, alert, with orientation to person, place and time. Behavior, mood, and affect are within normal limits. 12:27 Musculoskeletal/extremity: Extremities: grossly normal except: noted in the anterior aspect of right shoulder and posterior aspect of right shoulder: decreased ROM, pain. Vital Signs: 11:20 BP 100 / 79; Pulse 54; Resp 16; Temp 98.1; Pulse Ox 98% on R/A; Weight 77.11 kg; Height hb 5 ft. 10 in. (177.80 cm); Pain 6/10; 11:49 BP 118 / 82; Pulse 46; Resp 17; Pulse Ox 96% on R/A; sv 12:00 BP 101 / 72; Pulse 51; Resp 19; Pulse Ox 100% on 15% Non-rebreather mask; sv 12:05 BP 113 / 95; Pulse 54; Resp 23; Pulse Ox 100% on 15% Non-rebreather mask; sv 12:37 BP 117 / 77; Pulse 48; Resp 16; Pulse Ox 100% ; em1 12:45 BP 113 / 89; Pulse 48; Resp 18; Pulse Ox 100% on R/A; sv 11:20 Body Mass Index 24.39 (77.11 kg, 177.80 cm) hb Trauma Score (Adult): 11:20 Eye Response: spontaneous(1); Verbal Response: oriented(1); Motor Response: obeys hb commands(2); Systolic BP: > 89 mm Hg(4); Respiratory Rate: 10 to 29 per min(4); [place] Score: 15; Trauma Score: 12 Procedures: 12:27 Reduction: of the right shoulder, using traction, manipulation, Immobilized with kdr shoulder immobilizer. Patient tolerated well. Post reduction film - reveals normal alignment. Moderate sedation: Pre-procedure assessment: the patient has been NPO an unknown amount of time prior to arrival, ASA physical classification: I - healthy, no underlying organic disease, Airway assessment: able to hyperextend neck, Mallampati classification of tongue size: II - faucial pillars and soft palate can be visualized, but uvula is masked by the base of the tongue, Monitoring during procedure: quality assurance monitor body, continuous pulse oximetry, nurse at bedside at all times, Medications employed: Fentanyl, Propofol. Laceration: 12:27 Wound Repair of 1.5cm ( 0.6in ) subcutaneous laceration to forehead. Linear shaped.. kdr Minimal contamination.. Minimal bleeding noted.. Hemostasis noted.. Distal neuro/vascular/tendon intact. Anesthesia: Wound infiltrated with 2 mls of 1% lidocaine w/ Epi, Wound infiltrated with 2 mls of 0.25% marcaine. Wound prep: Moderate cleansing with betadine by me, Copious irrigation. Skin closed with 5 5-0 Prolene using simple sutures and sterile technique. Dressed with Bacitracin. Patient tolerated well. MDM: 12:27 Data reviewed: vital signs, nurses notes, radiologic studies. Counseling: I had a kdr detailed discussion with the patient and/or guardian regarding: the historical points, exam findings, and any diagnostic results supporting the discharge/admit diagnosis, radiology results, the need for outpatient follow up. 12:39 Special discussion: I discussed with the patient/guardian in detail that at this point kdr there is no indication for admission to the hospital. It is understood, however, that if the symptoms persist or worsen the patient needs to return immediately for re-evaluation. ED course: The patient was consistently bradycardic. he stated that this is normal for him. 12:47 Patient medically screened. [facility] 08/08 11:40 Order name: Shoulder Right (2 View) XRAY; Complete Time: 16:44 [facility] 08/08 11:41 Order name: Prolene, Sutures; Complete Time: 11:45 [facility] 08/08 11:41 Order name: Dressing - Wound; Complete Time: 12:51 [facility] 08/08 11:41 Order name: Gloves, Sterile; Complete Time: 11:45 [facility] 08/08 11:41 Order name: Setup Suture Tray; Complete Time: 11:45 [facility] Administered Medications: 11:58 Drug: Propofol 45 mg {Note: given by Dr Nichols.} Route: IVP; Site: left antecubital; sv 12:51 Follow up: Response: No adverse reaction sv 12:03 Drug: Propofol 35 mg {Note: given by Dr Nichols.} Route: IVP; Site: left antecubital; sv 12:51 Follow up: Response: No adverse reaction sv 12:05 Drug: Propofol 20 mg {Note: given by Dr Nichols.} Route: IVP; Site: left antecubital; sv 12:51 Follow up: Response: No adverse reaction sv 12:10 Drug: Lidocaine-Epinephrine -1%: (1:100,000) 5 ml {Note: given to Dr Nichols for sv procedure.} Volume: 20 ml; Route: Infiltration; 12:10 Drug: Marcaine (0.5 %) 5 ml {Note: given to Dr Nichols for procedure.} Volume: 10 ml; sv Route: Infiltration; Disposition: 08/08/17 12:47 Discharged to Home. Impression: Other dislocation of right shoulder joint, Forehead laceration, Facial laceraton - forehead. - Condition is Stable. - Discharge Instructions: Facial Laceration, [id number], Head Injury, Adult, [id number], Shoulder Dislocation, [id number]. - Prescriptions for Keflex 500 mg Oral Capsule - take 1 capsule by ORAL route every 6 hours for 3 days; 12 capsule. Tramadol 50 mg Oral Tablet - take 1 tablet by ORAL route every 8 hours as needed; 12 tablet. - Medication Reconciliation Form, Thank You Letter, Antibiotic Education, Prescription Opioid Use form. - Follow up: Private Physician; When: 2 - 3 days; Reason: If symptoms return, Further diagnostic work-up, Recheck today's complaints, Continuance of care, Re-evaluation by your physician. - Problem is new. - Symptoms have improved. - Notes: Sutures will need to come out in 5 - 7 days and be replaed by steri-strip/tape wound closure. Signatures: Dispatcher [employer] Erin Sultana, HAN SHORT Antonio Nichols MD MD [facility] [place] Jean Baptiste RN RN Corrections: (The following items were deleted from the chart) 13:14 12:47 08/08/2017 12:47 Discharged to Home. Impression: Other dislocation of right sv shoulder joint; Forehead laceration; Facial laceraton - forehead. Condition is Stable. Forms are Medication Reconciliation Form, Thank You Letter, Antibiotic Education, Prescription Opioid Use. Follow up: Private Physician; When: 2 - 3 days; Reason: If symptoms return, Further diagnostic work-up, Recheck today's complaints, Continuance of care, Re-evaluation by your physician. Problem is new. Symptoms have improved. kdr
--- NOTE | 2017-08-08 13:30 | RAD REPORT ---
EXAM DESCRIPTION: Shoulder Right 2 View - 08/08/2017 12:40 pm CLINICAL HISTORY: Fall from ladder, shoulder pain COMPARISON: Portable chest May 2017 TECHNIQUE: Internal and external rotation views of the right shoulder were obtained. FINDINGS: No fracture or dislocation of the proximal humerus. There are calcifications along the sup erolateral humeral head on external rotation. This is probably supraspinatus tendon calcification. Mi nimal degenerative change seen to the AC joint. No acute finding at the AC joint. Acromial humeral anibal int space is still within normal range. Bone density is present along the medial margin of the scapula at the junction of the glenoid with th e blade of the scapula. There are areas of lucent change along the superolateral scapula concerning f or fracture. IMPRESSION: Suspected nondisplaced scapula fracture. Correlation is needed with pain symptoms and fo llow-up imaging can be performed as warranted. Degenerative supraspinatus tendon calcifications with no acute proximal humerus finding.
== END 2017-08-08 13:14 | disposition home or self-care (01) ==
LOC: ER 11:13
PROC: 0RSJXZZ Reposition Right Shoulder Joint, External Approach (ICD-10-PCS; principal; 2017-08-08)
PROC: 0JQ10ZZ Repair Face Subcutaneous Tissue and Fascia, Open Approach (ICD-10-PCS; 2017-08-08)
DX: S43.084A Other dislocation of right shoulder joint, initial encounter (principal); S01.81XA Laceration without foreign body of other part of head, initial encounter; W19.XXXA Unspecified fall, initial encounter; Y93.9 Activity, unspecified; Y92.9 Unspecified place or not applicable; Z72.0 Tobacco use
CPT/HCPCS: 96374; 99285; J3010